=== PATIENT | male | born 1995 | race Hispanic/Latino ===

== ENCOUNTER 2022-04-23 06:44 | Emergency (ER) | payer OTHER, SELFPAY ==
[2022-04-23 06:47] VITALS: BP 137/89; PULSE 84; RESP 18; TEMP 36.8; O2SAT 99; BMI 27.1
--- NOTE | 2022-04-23 08:13 | ED_ITS ---
HPI - Back Pain/Injury General Chief Complaint: Back Pain/Injury Stated Complaint: Back Pain Time Seen by Provider: 04/23/22 08:12 Source: patient and EMS Mode of arrival: EMS Limitations: no limitations History of Present Illness HPI Narrative: This is a 26-year-old male who denies other medical issues, he presents with left lower back pain radiating towards his left buttock. Patient notes little bit of a bump in the lower SI region. Patient states pain has been present for the last day or so he states it started while he was seated. He states movement such as leg lift on the left side, standing up straight or bending over make it worse. He is had similar symptoms in the past but not persistently. No trauma. Patient denies fevers or chills, no chest pain or shortness of breath, no nausea or vomiting, denies urinary or fecal incontinence, no numbness, tingling weakness in his legs. He states pain does not really radiate down his leg just to the left buttock. Patient took Aleve last night but has not had anything today. Denies prior surgeries, he also denies any prior interventions for his back. He has not seen anyone for this in the past. Patient denies tobacco, occasional alcohol, no illicit. [facility]. Related Data Previous Rx's Medication Instructions Recorded cyclobenzaprine 10 mg tablet 10 mg PO TID PRN muscle spasm #10 04/23/22 tabs meloxicam 7.5 mg tablet 7.5 mg PO BID PRN pain #14 tabs 04/23/22 Allergies Allergy/AdvReac Type Severity Reaction Status Date / Time No Known Drug Allergies Allergy Verified 04/23/22 06:47 Review of Systems Review of Systems ROS Unobtainable: All systems reviewed & are unremarkable except as noted in HPI and below Patient History Social History Smoking Status: Never smoker Smoking Status: Never smoker alcohol intake frequency: holidays/special occasions only Substance Use Type: does not use Exam Narrative Exam Narrative: GENERAL: Alert and oriented x three, male in mild distress. HEENT: Head normocephalic, atraumatic, EOMI, pupils reactive, face symmetric, moist mucous membranes NECK: Supple, full range of motion CARDIOVASCULAR: Regular rate and rhythm without murmurs, rubs or gallops. RESPIRATORY: Breath sounds equal bilaterally, no wheezes rales or rhonchi. ABDOMEN: Soft, nontender. Normoactive bowel sounds all 4 quadrants. No guarding or rebound, rigidity, no mass : No CVA tenderness BACK: No cervical, thoracic or lumbar vertebral point tenderness. Patient has some tenderness radiating towards the left piriformis region. There is quite a bit tissue tightness even a large area of fullness that is quite tight. There is no fluctuance, there is no discrete lump or fluid correction. There is no warmth, erythema or other skin changes. Patient has normal range of motion. Patient's gait is normal. Rectal exam is deferred. Muscle strength is 5/5 in lower extremities, DTRs are 2/4 and lower extremities. Dorsalis pedis and tibialis pulses are 2+ and lower extremities. Sensation is intact in the lower extremities. EXTREMITIES: Normal range of motion, no clubbing or edema. Neurovascularly intact NEUROLOGICAL: Cranial nerves II through XII grossly intact. Moving all extremities SKIN: Warm, dry, no petechiae, no rashes or lesions. Initial Vital Signs Initial Vital Signs: Vital Signs Temperature 98.2 F 04/23/22 06:47 Pulse Rate 84 04/23/22 06:47 Respiratory Rate 18 04/23/22 06:47 Blood Pressure 137/89 04/23/22 06:47 Pulse Oximetry 99 04/23/22 06:47 Oxygen Delivery Method 04/23/22 06:47 Course Orders Ordered: Discontinued Medications Ketorolac Tromethamine (Ketorolac 30 Mg/Ml Vial) 30 mg IM NOW ONE Stop: 04/23/22 08:20 Last Admin: 04/23/22 08:23 Dose: 30 mg Documented By: SHEEBA Vital Signs Vital signs: Vital Signs - 8 hr 04/23/22 06:47 Temperature 98.2 F Pulse Rate 84 Respiratory Rate 18 Blood Pressure 137/89 Pulse Oximetry 99 Oxygen Delivery Method Room Air MDM - Back Pain/Injury MDM Narrative Medical decision making narrative: 26-year-old male with left lower lumbar buttock discomfort. Patient has normal exam except for some fullness tightness an area that feels like very tight muscle of the left SI region. Patient's exam is overall reassuring. Plan for Toradol, prescription for meloxicam as he states leave was not helpful and short course of muscle relaxers needed. Discussed follow-up with primary care possible PT and further workup as needed. We did discuss if the area of fullness turns red becomes fluctuant or has other changes needs re-evaluation. No other red flags are appreciated. Return precautions. Discharge Plan Departure Patient Disposition: Home Clinical Impression: Low back pain Instructions: DI for Low Back Pain Activity Restrictions/Additional Instructions: Follow-up with primary care in the next 1-2 weeks for recheck. You may take meloxicam 1 tablet every 12 hours as needed for pain. Do not take NSAIDs such as Aleve or ibuprofen with this medication. You can take Tylenol up to a 1000 mg every 6 hours as needed. You can also take muscle relaxer 1 tablet every 8 hours as needed. This medication can make you sleepy do not drive, perform hazardous activities or make any major decisions while taking it. Prescription sent to [facility] pharmacy in [place]. Please return for fevers, rapidly worsening pain, loss of bowel or bladder control, weakness, loss of sensation or inability to lift or move her leg or if you appreciate a new area of redness, or signs of infection. Prescriptions: New meloxicam 7.5 mg tablet 7.5 mg PO BID PRN (Reason: pain) Qty: 14 0RF cyclobenzaprine 10 mg tablet 10 mg PO TID PRN (Reason: muscle spasm) Qty: 10 0RF Referrals: ProviderLukasz [Primary Care Provider] - Stand Alone Forms: Work Release Note Visit Report Forms: Patient Portal/API
[2022-04-23] MEDS: KETOROLAC 30 MG/ML VIAL IM (08:23)
== END 2022-04-23 08:36 | disposition home or self-care (01) ==
PROVIDERS: Emergency Provider Emergency Medicine
DX: M54.50 Low back pain, unspecified (principal)
CPT/HCPCS: 96372; 99283; J1885